=== PATIENT | female | born 1995 | race Two or more races ===

== ENCOUNTER 2017-12-14 12:08 | Emergency (ER) | payer OTHER ==
[~2017-12-14] VITALS: Ht 172.7 cm; Wt 57.2 kg
[2017-12-14] MEDS ORDERED: SPRINTEC 28 DA1 EACH (12:22)
== END 2017-12-14 16:27 | disposition home or self-care (01) ==
LOC: ER 12:08
DX: K59.09 Other constipation (principal)

== ENCOUNTER 2018-02-18 23:07 | Emergency (ER) | payer OTHER ==
[~2018-02-18] VITALS: Ht 172.7 cm; Wt 56.7 kg
[~2018-02-18 23:07] MED LIST: SPRINTEC 28 DA1 EACH
[2018-02-19] MEDS ORDERED: VISTARIL50 MG PO (01:06)
[2018-02-19] MEDS ORDERED: KETO10TA2 PO (01:06)
== END 2018-02-19 01:19 | disposition home or self-care (01) ==
LOC: ER 23:07
DX: R00.2 Palpitations (principal); M94.0 Chondrocostal junction syndrome [Tietze]

== ENCOUNTER 2018-04-15 16:00 | Emergency (ER) | payer OTHER ==
[~2018-04-15] VITALS: Ht 172.7 cm; Wt 55.3 kg
[~2018-04-15 16:00] MED LIST changes: +KETO10TA2 PO; +VISTARIL50 MG PO
== END 2018-04-15 21:22 | disposition home or self-care (01) ==
LOC: ER 16:00
DX: A90 Dengue fever [classical dengue] (principal); R21 Rash and other nonspecific skin eruption